=== PATIENT | male | born 1990 | race Caucasian/White ===

== ENCOUNTER 2016-12-07 17:09 | Emergency (ER) | payer BC ==
[2016-12-07 17:18] VITALS: BP 125/85
[2016-12-07] MEDS ORDERED: Ketorolac 60 MG/2 ML SDV IM ONE (18:00)
--- NOTE | 2016-12-07 18:12 | EDM.PDOC ---
ED HPI ENT - General Chief Complaint: ENT Problem Stated Complaint: PAIN RT SIDE EAR/FACE Time Seen by Provider: 12/07/16 17:45 Source of Information: Reports: Patient History Limitations: Reports: No limitations - History of Present Illness INITIAL COMMENTS - FREE TEXT/NARRATIVE: Presents reporting right jaw and wisdom tooth pain. The patient states that he saw a dentist this past week who indicated he had a dental infection and needed his to have #16 removed. Oral surgery is scheduled for January 06. In the meantime he has been using Orajel and taking ibuprofen for the pain. He is having some difficulty sleeping and would like something else for the pain while working. He is having some difficulty with focus and concentration at work do to the continuous pain in his jaw and tooth and gum. He has been taking his Augmentin as prescribed by his dentist. - Related Data Allergies/ADRs: Allergies Allergy/AdvReac Type Severity Reaction Status Date / Time amoxicillin Allergy swelling Verified 12/07/16 17:12 around lips Home Meds: Home Meds Amoxicillin/Clavulanate K [Augmentin 875 MG/125 MG] 1 tab PO BID 12/07/16 [ History] Past Medical History HEENT History: Reports: None Cardiovascular History: Reports: None Respiratory History: Reports: None Gastrointestinal History: Reports: None Musculoskeletal History: Reports: None Neurological History: Reports: None Psychiatric History: Reports: None Endocrine/Metabolic History: Reports: None Dermatologic History: Reports: None - Infectious Disease History Infectious Disease History: Reports: None - Past Surgical History HEENT Surgical History: Reports: None Cardiovascular Surgical History: Reports: None Respiratory Surgical History: Reports: None GI Surgical History: Reports: None Endocrine Surgical History: Reports: None Musculoskeletal Surgical History: Reports: None Social & Family History - Tobacco Use Tobacco Use Comment: chew tobacco for 2 years ED ROS ENT - Review of Systems Review Of Systems: ROS reveals no pertinent complaints other than HPI. ED EXAM, ENT - Physical Exam Exam: See Below Exam Limited By: No limitations General Appearance: alert, no apparent distress Ears: normal external exam, normal TMs Nose: normal inspection Mouth/Throat: Normal lips, Other (Gum tissue around tooth #16 is swollen, inflamed and protruding over the cusps of tooth #16) Head: atraumatic, normocephalic Neck: normal inspection, supple, lymphadenopathy (R) (shoddy). No: lymphadenopathy (L) Respiratory/Chest: no respiratory distress, lungs clear, normal breath sounds Cardiovascular: normal peripheral pulses, regular rate, rhythm, no murmur GI/Abdominal: soft Back: normal inspection Extremities: normal inspection Neurological: alert, oriented Psychiatric: normal affect, normal mood Skin: Warm, Dry, Intact, Normal color, No rash Lymphatic: no adenopathy Course - Vital Signs Last Recorded V/S: Last Vital Signs Temp 36.8 C 12/07/16 17:13 Pulse 77 12/07/16 17:13 Resp 16 12/07/16 17:13 BP 125/85 12/07/16 17:13 Pulse Ox 98 12/07/16 17:13 Departure - Departure Time of Disposition: 18:21 Disposition: Home, Self-Care 01 Condition: good Clinical Impression: Pericoronitis Referrals: PCP,None [Primary Care Provider] - Forms: ED Department Discharge Additional Instructions: 1. Warm saltwater rinses every 2 hours 2. Diclofenac 3 times a day with food 3. Dental balls, gently inserted in the affected area and bite down with gentle pressure. Keep in place for 10 minutes every 2 hours 4. Followup with your oral surgeon as previously scheduled 5. Continue your antibiotics until they are all gone
[2016-12-07] MEDS ORDERED: Lidocaine 2% Viscous Solution 15 ML Cup PO ONE (18:15)
[2016-12-07] MEDS ORDERED: Benzocaine 20% Topical Spray UD MUCMEM ONE (18:15)
== END 2016-12-07 18:50 | disposition home or self-care (01) ==
LOC: MW.ED 17:09
DX: K05.30 Chronic periodontitis, unspecified (principal); Z88.1 Allergy status to other antibiotic agents
CPT/HCPCS: 96372; 99283; A9270; J1885

== ENCOUNTER 2017-01-04 07:27 | Emergency (ER) | payer BC ==
--- NOTE | 2017-01-04 07:42 | EDM.PDOC ---
ED HPI ENT - General Chief Complaint: ENT Problem Stated Complaint: JAW PAIN Time Seen by Provider: 01/04/17 07:30 Source of Information: Reports: Patient History Limitations: Reports: No limitations - History of Present Illness INITIAL COMMENTS - FREE TEXT/NARRATIVE: History of present illness: [] Patient's had over one month history of lower right wisdom tooth pain. He's been seen here once before had course of antibiotics last month the pain returns to complains of drainage with a sour taste in his mouth and pain radiating up to his ear. Patient denies any fevers or chills. Review of systems: As per history of present illness and below otherwise all systems reviewed and negative. Past medical history: As per history of present illness and as reviewed below otherwise noncontributory. Surgical history: As per history of present illness and as reviewed below otherwise noncontributory. Social history: No reported history of drug or alcohol abuse. Family history: As per history of present illness and as reviewed below otherwise noncontributory. Physical exam: General: Well developed, well nourished in NAD HEENT: Atraumatic, normocephalic, pupils reactive, negative for conjunctival pallor or scleral icterus, mucous membranes moist, throat clear, neck supple, nontender, trachea midline. No drainage from the gumline noted, no facial swelling or erythema. Lungs: Clear to auscultation, breath sounds equal bilaterally, chest nontender. Heart: S1S2, regular, negative for clicks, rubs, or JVD. Abdomen: Soft, nondistended, nontender. Negative for masses or hepatosplenomegaly. Negative for costovertebral tenderness. Pelvis: Stable nontender. Genitourinary: Deferred. Rectal: Deferred. Extremities: Atraumatic, negative for cords or calf pain. Neurovascular unremarkable. Neuro: Awake, alert, oriented. Cranial nerves II through XII unremarkable. Cerebellum unremarkable. Motor and sensory unremarkable throughout. Exam nonfocal. Diagnostics: [] Therapeutics: [] Inferior alveolar nerve block done with 1% lidocaine and half percent bupivacaine 2 mL injected Impression: [] Dental abscess left lower wisdom tooth Plan: [] Followup dentist if symptoms worsen or change Definitive disposition and diagnosis as appropriate pending reevaluation and review of above. - Related Data Allergies/ADRs: Allergies Allergy/AdvReac Type Severity Reaction Status Date / Time amoxicillin Allergy swelling Verified 01/04/17 07:39 around lips Home Meds: Home Meds . [No Known Home Meds] 01/04/17 [History] Past Medical History HEENT History: Reports: None Cardiovascular History: Reports: None Respiratory History: Reports: None Gastrointestinal History: Reports: None Musculoskeletal History: Reports: None Neurological History: Reports: None Psychiatric History: Reports: None Endocrine/Metabolic History: Reports: None Dermatologic History: Reports: None - Infectious Disease History Infectious Disease History: Reports: None - Past Surgical History HEENT Surgical History: Reports: None Cardiovascular Surgical History: Reports: None Respiratory Surgical History: Reports: None GI Surgical History: Reports: None Endocrine Surgical History: Reports: None Musculoskeletal Surgical History: Reports: None ED ROS ENT - Review of Systems Review Of Systems: See Below (See history of present illness) ED EXAM, ENT - Physical Exam Exam: See Below (See history of present illness) Course - Vital Signs Last Recorded V/S: Last Vital Signs Temp 36.8 C 01/04/17 07:30 Pulse 80 01/04/17 07:30 Resp 16 01/04/17 07:30 BP 124/83 01/04/17 07:30 Pulse Ox 98 01/04/17 07:30 - Orders/Labs/Meds Meds: Medications Discontinued Medications Generic Name Dose Route Start Last Admin Trade Name Caleb PRRuth Reason Stop Dose Admin Bupivacaine HCl 10 ml 01/04/17 07:53 01/04/17 08:12 Sensorcaine-Mpf 0.5% INJECT 01/04/17 07:54 10 ml ONETIME ONE Administration Lidocaine HCl 20 ml 01/04/17 07:53 01/04/17 08:12 Xylocaine 1% INJECT 01/04/17 07:54 20 ml ONETIME ONE Administration Departure - Departure Time of Disposition: 08:06 Disposition: Home, Self-Care 01 Condition: good Clinical Impression: Pain, dental Instructions: Dental Caries, [id number] Referrals: PCP,None [Primary Care Provider] - Forms: ED Department Discharge Additional Instructions: The following information is given to patients seen in the emergency department who are being discharged to home. This information is to outline your options for follow-up care. We provide all patients seen in our emergency department with a follow-up referral. The need for follow-up, as well as the timing and circumstances, are variable depending upon the specifics of your emergency department visit. If you don't have a primary care physician on staff, we will provide you with a referral. We always advise you to contact your personal physician following an emergency department visit to inform them of the circumstance of the visit and for follow-up with them and/or the need for any referrals to a consulting specialist. The emergency department will also refer you to a specialist when appropriate. This referral assures that you have the opportunity for follow-up care with a specialist. All of these measure are taken in an effort to provide you with optimal care, which includes your follow-up. Under all circumstances we always encourage you to contact your private physician who remains a resource for coordinating your care. When calling for follow-up care, please make the office aware that this follow-up is from your recent emergency room visit. If for any reason you are refused follow-up, please contact the [facility] Emergency Department at and asked to speak to the emergency department charge nurse. Clindamycin 3 times a day, Winfred every 6 hours for pain as needed Followup dentist as scheduled for wisdom tooth extraction. Followup PMD for pain control if needed [facility] [address] [place] [id number]
[2017-01-04] MEDS ORDERED: Lidocaine 1% 20 ML MDV INJECT ONE (07:53)
[2017-01-04] MEDS ORDERED: Bupivacaine 0.5% 10 ML SDV INJECT ONE (07:53)
[2017-01-04 08:15] VITALS: BP 121/78
== END 2017-01-04 08:13 | disposition home or self-care (01) ==
LOC: MW.ED 07:27
DX: K04.7 Periapical abscess without sinus (principal); Z88.1 Allergy status to other antibiotic agents
CPT/HCPCS: 64400; 99282; 99283

== ENCOUNTER 2021-05-25 20:02 | Emergency (ER) | payer BC, OTHER ==
[2021-05-25 22:24] VITALS: BP 116/72; PULSE 78
--- NOTE | 2021-05-25 23:20 | EDM.PDOC ---
ED HPI GENERAL MEDICAL PROBLEM - General Chief Complaint: Genitourinary Problem Stated Complaint: GROIN PAIN Time Seen by Provider: 05/25/21 22:41 - History of Present Illness INITIAL COMMENTS - FREE TEXT/NARRATIVE: HISTORY AND PHYSICAL: History of present illness: This is a 30-year-old gentleman who presents ER today complaining of intermittent episodes of left lower quadrant and groin pain times several weeks. Patient also complains of some dysuria. Patient denies any penile discharge. Patient has any recent fevers, shakes, chills, nausea, vomiting, diarrhea. Patient has any hematuria. Patient reports that he is sexually active. Patient has STDs in the past and is inquiring whether or not this may be an STD. Patient reports that at the time of my examination he has had no symptoms. Patient reports that currently he is pain-free. Review of systems: As per history of present illness and below otherwise all systems reviewed and negative. Past medical history: As per history of present illness and as reviewed below otherwise noncontributory. Surgical history: As per history of present illness and as reviewed below otherwise noncontributory. Social history: No reported history of drug abuse. Family history: As per history of present illness and as reviewed below otherwise noncontributory. Physical exam: This patient was seen and evaluated during the 2019 SARS-CoV-2 novel coronavirus pandemic period. Community viral transmission is ongoing at time of this encounter and the emergency department is operating under pandemic response procedures. Constitutional: Patient is oriented to person, place, and time. Appears well- developed and well-nourished. No distress. HEENT: Moist mucous membranes Head: Normocephalic and atraumatic Eyes: Right eye exhibits no discharge. Left eye exhibits no discharge. No scleral icterus Neck: Normal range of motion. No tracheal deviation present. Cardiovascular: Normal rate and regular rhythm. Pulmonary: Effort normal, no respiratory distress. Abd: Soft, nondistended, no rebound/guarding, no psoas or obturator signs, no tenderness at Mcberney's point, no Reyes's sign. Pt does not present with an exam that would be consistent with an acute surgical abdomen at this time Testes are nontender. No swelling, masses, lymphadenopathy, or hernia defect. Normal cremasteric reflex. No penile discharge. Musculoskeletal: Normal range of motion Neurologic: Alert and oriented to person, place and time. Skin: [place], warm and dry. Psychiatric: Normal mood and affect. Behavior is normal. Judgment and thought content normal. Nursing note and vital signs have been reviewed Diagnostics: Urinalysis normal GC chlamydia pending CT of the abdomen pelvis: Patient left ER prior to test without notifying staff. Therapeutics: [] Assessment and plan: 30-year-old gentleman who presents ER today complaining of left lower quadrant abdominal pain has been intermittent for several weeks. Patient's urinalysis was normal without any evidence of blood or infection. A GC chlamydia test has been sent and is pending. I have discussed with the patient that we will get a CT scan of the abdomen pelvis to rule out kidney stone as the pain has been intermittent and sharp in nature. I was notified by nursing that patient had left the ED and was requesting for us to call him back with his test results. I went out to talk to the patient regarding getting his CT scan of the abdomen pelvis however patient was actually walking out of the ER doors and started running towards the street. Definitive disposition and diagnosis as appropriate pending reevaluation and review of above. - Related Data Allergies Allergy/AdvReac Type Severity Reaction Status Date / Time amoxicillin Allergy swelling Verified 05/25/21 22:24 around lips Home Meds: Home Meds . [No Known Home Meds] 01/04/17 [History] Past Medical History - Past Health History Medical/Surgical History: Denies Medical/Surgical History HEENT History: Reports: None Cardiovascular History: Reports: None Respiratory History: Reports: None Gastrointestinal History: Reports: None Genitourinary History: Reports: None Musculoskeletal History: Reports: None Neurological History: Reports: None Psychiatric History: Reports: None Endocrine/Metabolic History: Reports: None Hematologic History: Reports: None Immunologic History: Reports: None Oncologic (Cancer) History: Reports: None Dermatologic History: Reports: None - Infectious Disease History Infectious Disease History: Reports: None - Past Surgical History Head Surgeries/Procedures: Reports: None HEENT Surgical History: Reports: None Cardiovascular Surgical History: Reports: None Respiratory Surgical History: Reports: None GI Surgical History: Reports: None Endocrine Surgical History: Reports: None Musculoskeletal Surgical History: Reports: None Social & Family History - Family History Family Medical History: No Pertinent Family History - Tobacco Use Tobacco Use Status *Q: Current Every Day Tobacco User Years of Tobacco use: 2 Packs/Tins Daily: 0.2 - Caffeine Use Caffeine Use: Reports: Coffee, Energy Drinks, Soda - Recreational Drug Use Recreational Drug Use: No ED ROS GENERAL - Review of Systems Review Of Systems: See Below ED EXAM, GENERAL - Physical Exam Exam: See Below Course - Vital Signs Last Recorded V/S: Last Vital Signs Temp 96.9 F 05/25/21 22:23 Pulse 78 05/25/21 22:23 Resp 18 05/25/21 22:23 BP 116/72 05/25/21 22:23 Pulse Ox 99 05/25/21 22:23 - Orders/Labs/Meds Orders: Active Orders 24 hr Category Date Time Status Abdomen Pelvis wo Cont [CT] Stat Exams 05/25/21 22:50 Ordered CHLAMYDIA AND GONORRHEA BY [facility] Stat Lab 05/25/21 19:45 Received Labs: Laboratory Tests 05/25/21 Range/Units 22:32 Urine Color YELLOW Urine Appearance CLEAR Urine pH 6.0 (5.0-8.0) Ur Specific [place] 1.025 (1.001-1.035) Urine Protein NEGATIVE (NEGATIVE) mg/dL Urine Glucose (UA) NEGATIVE (NEGATIVE) mg/dL Urine Ketones NEGATIVE (NEGATIVE) mg/dL Urine Occult Blood NEGATIVE (NEGATIVE) Urine Nitrite NEGATIVE (NEGATIVE) Urine Bilirubin NEGATIVE (NEGATIVE) Urine Urobilinogen 0.2 (<2.0) EU/dL Ur Leukocyte Esterase NEGATIVE (NEGATIVE) Departure - Departure Time of Disposition: 23:19 Disposition: Home, Self-Care 01 Condition: Undetermined Clinical Impression: Dysuria, Left groin pain - Discharge Information Instructions: Dysuria, Abdominal Pain, Adult Referrals: PCP,None [Primary Care Provider] - Additional Instructions: Patient left ER prior to completion of treatment and evaluation. Sepsis Event Note (ED) - Evaluation Sepsis Screening Result: No Definite Risk - Focused Exam Vital Signs: Vital Signs Temp Pulse Resp BP Pulse Ox 05/25/21 22:23 96.9 F 78 18 116/72 99 - My Orders Last 24 Hours: My Active Orders 05/25/21 19:45 CHLAMYDIA AND GONORRHEA BY [facility] Stat 05/25/21 22:50 Abdomen Pelvis wo Cont [CT] Stat - Assessment/Plan Last 24 Hours: My Active Orders 05/25/21 19:45 CHLAMYDIA AND GONORRHEA BY [facility] Stat 05/25/21 22:50 Abdomen Pelvis wo Cont [CT] Stat
[2021-05-27 14:03] LABS: C.TRACHOMATIS BY TMA Negative (Negative); N.GONORRHOEAE BY TMA Negative (Negative)
== END 2021-05-25 22:50 | disposition left against medical advice (07) ==
LOC: MW.ED 20:02
DX: R10.32 Left lower quadrant pain (principal); R30.0 Dysuria; Z88.0 Allergy status to penicillin; Z72.0 Tobacco use
CPT/HCPCS: 81003; 87491; 87591; 99284

== ENCOUNTER 2022-11-25 11:39 | Emergency (ER) | payer BC, OTHER ==
[2022-11-25] MEDS ORDERED: methylPREDNISolone Sodium Succinate 125 MG/2 ML SDV IM ONE (12:50)
[2022-11-25] MEDS ORDERED: Ketorolac 60 MG/2 ML SDV IM ONE (12:50)
[2022-11-25 13:42] VITALS: BP 128/79; PULSE 86
== END 2022-11-25 13:41 | disposition home or self-care (01) ==
LOC: MW.ED 11:39
DX: M54.41 Lumbago with sciatica, right side (principal); Z88.0 Allergy status to penicillin
CPT/HCPCS: 72100; 72100-26; 96372; 99283; J1885; J2930